=== PATIENT | male | born 1970 | race Caucasian/White ===

== ENCOUNTER 2017-09-17 17:18 | Emergency (ER) | payer MEDICAID ==
[~2017-09-17] VITALS: Ht 188 cm; Wt 87.4 kg
[~2017-09-17 17:18] MED LIST: IBUP-1984 PO; POLY17PO10 PO
[2017-09-17] MEDS ORDERED: LIDO700A32 TOP (19:17)
[2017-09-17 19:24] VITALS: BP 138/98
== END 2017-09-17 19:25 | disposition home or self-care (01) ==
LOC: ER 17:19
DX: R07.81 Pleurodynia (principal); W01.0XXA Fall on same level from slipping, tripping and stumbling without subsequent striking against object, initial encounter; Y93.89 Activity, other specified; Y92.89 Other specified places as the place of occurrence of the external cause; Y99.8 Other external cause status
CPT/HCPCS: 71046; 71100; 99284

== ENCOUNTER 2018-11-19 20:57 | Emergency (ER) | payer MEDICAID ==
[~2018-11-19] VITALS: Ht 188 cm; Wt 80.0 kg
[~2018-11-19 20:57] MED LIST changes: +LIDO700A32 TOP
[2018-11-19 21:12] VITALS: BP 109/69
== END 2018-11-20 00:13 | disposition left against medical advice (07) ==
LOC: ER 20:58
DX: M54.5 Low back pain (principal); R20.0 Anesthesia of skin; R20.2 Paresthesia of skin; Z53.21 Procedure and treatment not carried out due to patient leaving prior to being seen by health care provider

== ENCOUNTER 2019-03-04 13:14 | Emergency (ER) | payer MEDICAID ==
[~2019-03-04] VITALS: Ht 188 cm; Wt 79.0 kg
[2019-03-04 13:21] VITALS: BP 110/84
[2019-03-04] MEDS ORDERED: TRAM50TA2 PO (14:00)
== END 2019-03-04 14:30 | disposition home or self-care (01) ==
LOC: ER 13:14
DX: S86.812A Strain of other muscle(s) and tendon(s) at lower leg level, left leg, initial encounter (principal); M79.672 Pain in left foot; Z98.890 Other specified postprocedural states; Z79.899 Other long term (current) drug therapy; W01.190A Fall on same level from slipping, tripping and stumbling with subsequent striking against furniture, initial encounter; Y93.89 Activity, other specified; Y92.59 Other trade areas as the place of occurrence of the external cause; Y99.0 Civilian activity done for income or pay
CPT/HCPCS: 73590; 73610; 99283

== ENCOUNTER 2020-11-11 08:24 | Emergency (ER) | payer MEDICAID ==
[~2020-11-11] VITALS: Ht 188 cm; Wt 88.0 kg
[2020-11-11 08:39] VITALS: BP 123/85
== END 2020-11-11 11:35 | disposition home or self-care (01) ==
LOC: ER 08:25
DX: M25.511 Pain in right shoulder (principal); Z98.890 Other specified postprocedural states; Z79.899 Other long term (current) drug therapy
CPT/HCPCS: 73000; 99283

== ENCOUNTER 2022-11-19 08:27 | Emergency (ER) | payer MEDICAID ==
[~2022-11-19] VITALS: Ht 188 cm; Wt 90.0 kg
[2022-11-19] MEDS ORDERED: dexamethasone sod phosphate 10mg/ml inj IM STA (09:13)
[2022-11-19] MEDS ORDERED: LIDOcaine 5% patch TP STA (09:13)
[2022-11-19] MEDS ORDERED: DEXA6TAB PO (10:43)
[2022-11-19] MEDS ORDERED: CYCL-392 PO (10:43)
[2022-11-19 11:04] VITALS: BP 110/85
== END 2022-11-19 11:11 | disposition home or self-care (01) ==
LOC: ER 08:27
DX: M54.50 Low back pain, unspecified (principal); Z79.899 Other long term (current) drug therapy; Z98.890 Other specified postprocedural states
CPT/HCPCS: 96372; 99283; J1100

== ENCOUNTER 2024-11-28 15:01 | Emergency (ER) | payer BC, MEDICAID ==
[~2024-11-28] VITALS: Ht 188 cm; Wt 69.0 kg
[~2024-11-28 15:01] MED LIST changes: +CYCL-392 PO; +DEXA6TAB PO
--- NOTE | 2024-11-28 15:30 | ELECTROCARDIOGRAPH REPORT ---
[facility] Test Date: 2024-11-28 Test Time: 15:01:21 Pat Name: HARRIS ROMERO Department: EMERGENCY ROOM Room: Gender: M Advanced Practice Nurse: : 1970 Requested By: DEPARTMENT EMERGENCY Order Number: [id number] Reading MD: Dr. Lester Soto Measurements Intervals [place] Rate: 80 P: 60 ID: [id number] QRS: 73 QRSD: 86 T: 52 QT: 365 QTc: 421 Interpretive Statements Sinus rhythm Electronically Signed On 12-05-2024 21:44:[address] Lester Soto Please click the below link to view image of tracing.
[2024-11-28 19:27] LABS: BASOPHILS % (AUTO) 0.6 % (0-1); EOSINOPHILS # (AUTO) 0.1 X10'3 (0-0.9); EOSINOPHILS % (AUTO) 1.8 % (0-6); HEMATOCRIT 46.3 % (42.0-52.0); LYMPHOCYTES # (AUTO) 0.7 X10'3 (1.1-4.8); LYMPHOCYTES % (AUTO) 16.4 % (21-51); MEAN CORPUSCULAR HEMOGLOBIN 31.4 PG (27.0-31.0); MEAN CORPUSCULAR HGB CONC 34.5 g/dL (33.0-36.5); MEAN PLATELET VOLUME 7.2 FL (7.4-10.4); MONOCYTES # (AUTO) 0.4 X10'3 (0-0.9); MONOCYTES % (AUTO) 8.1 % (2-12); NEUTROPHILS # (AUTO) 3.3 X10'3 (1.8-7.7); NEUTROPHILS % (AUTO) 73.1 % (42-75); PLATELET COUNT 261 X10'3 (140-440); RED BLOOD COUNT 5.09 X10'6 (4.70-6.10); RED CELL DISTRIBUTION WIDTH 13.3 % (11.5-14.5); WHITE BLOOD COUNT 4.5 X10'3 (4.5-11.0)
--- NOTE | 2024-11-28 19:30 | Physician Documentation ---
History of Present Illness ~ Chief Complaint: Chest Pain Stated Complaint: CP Time Seen by MD: 18:52 OK to notify your PCP?: Yes Primary Medical Doctor: NANDO DONALD Source: patient, EMS notes reviewed Mode of Arrival: EMS Exam Limitations: no limitations HEART Score: 2 HPI Chief Complaint: Chest pressure Caveat: None Independent Historians: Paramedics History of Present Illness: Patient is a 54-year-old man brought in by paramedics from home for chest pain. Patient describes the pain as pressure. This lasted approximately 1 hour. Who was associated with nausea and shortness of Breath. Patient also felt fatigued. Diaphoresis. Chest pressure was nonradiating. Paramedics gave him 324 of aspirin and one sublingual nitro. This made him feel more fatigued. No abdominal pain. No vomiting or diarrhea. This occurred while at rest. There are no exacerbating factors. Patient states that he had a similar experience but was much worse seven years ago. He was admitted to the hospital and had a full and negative cardiac workup. Review of systems: All systems were reviewed and are negative except for what is indicated in the history of present illness. Past Medical History: HLD Past Surgical History: None Social History: No tobacco use, no alcohol use, no drug use Medications: Reviewed as documented Nursing Notes Allergies: Reviewed as documented in Nursing Notes Medication Reconciliation Allergies: Coded Allergies: No Known Allergies (Unverified , 11/28/24) Scheduled Dexamethasone (Dexamethasone), 1 TAB PO DAILY Lidocaine (Lidoderm), 1 PATCH TOP DAILY Polyethylene Glycol 3350* (Miralax*), 1 PKT PO DAILY, (Reported) Scheduled PRN Cyclobenzaprine HCl (Cyclobenzaprine HCl), 1-2 TAB PO qhs PRN for muscle spasms Ibuprofen* (Motrin*), 1.5 TAB PO Q6H PRN PRN for P, (Reported) Past Medical History Past Medical History: No Pertinent History Past Surgical History: abdominal surgery Alcohol Use: None Drug Use: none Lives with: Family Lives In: Home Occupation: employed Physical Exam Vital Signs: Temperature: 98.3, Source: Oral, Heart Rate: 54, Respiratory Rate: 16, BP: 126/94, Pulse Oximetry: 94, Weight: 69.000 Oxygen Flow Rate: 0 Progress Results/Orders Results/Orders Orders - KACY TAYLOR MD Electrocardiogram (11/28/24 19:07) Chest,Single View (11/28/24 19:07) Saline Lock (11/28/24 19:07) Monitor (11/28/24 19:07) Oxygen (11/28/24 19:07) Hs Troponin I W Calculations (11/28/24 21:07) Hs Troponin I W Calculations (11/28/24 22:07) Completed Orders - KACY TAYLOR MD Cbc/Diff (11/28/24 19:07) MG (11/28/24 19:07) PBNP (11/28/24 19:07) Chest,Single View (11/28/24 19:07) D-Dimer (11/28/24 19:07) Hs Troponin I W Calculations (11/28/24 19:07) CMP (11/28/24 19:07) Vital Signs 11/28/24 11/28/24 11/28/24 11/28/24 15:28 18:47 18:47 19:50 Temp 97.6 98.3 98.3 Pulse 89 54 75 Resp 15 16 16 15 B/P (MAP) 125/90 126/94 (105) 124/88 (100) Pulse Ox 97 94 97 O2 Flow Rate 0 0 Laboratory Tests Test 11/28/24 19:14 White Blood Count 4.5 Red Blood Count 5.09 Hemoglobin 16.0 Hematocrit 46.3 Mean Corpuscular Volume 91.0 Mean Corpuscular Hemoglobin 31.4 H Mean Corpuscular Hemoglobin Concent 34.5 Red Cell Distribution Width 13.3 Platelet Count 261 Mean Platelet Volume 7.2 L Neutrophils (%) (Auto) 73.1 Lymphocytes (%) (Auto) 16.4 L Monocytes (%) (Auto) 8.1 Eosinophils (%) (Auto) 1.8 Basophils (%) (Auto) 0.6 Neutrophils # (Auto) 3.3 Lymphocytes # (Auto) 0.7 L Monocytes # (Auto) 0.4 Eosinophils # (Auto) 0.1 Basophils # (Auto) 0.0 CBC Comment D-Dimer 0.23 D-Dimer Comment Sodium Level 141 Potassium Level 4.5 Chloride Level 107 Carbon Dioxide Level 29.7 Anion Gap 4 L Blood Urea Nitrogen 14 Creatinine 0.99 Estimated GFR/1.73 m2 79 BUN/Creatinine Ratio 14.1 Glucose Level 87 Calcium Level 8.7 Magnesium Level 2.3 Total Bilirubin 0.7 Aspartate Amino Transf (AST/SGOT) 21 Alanine Aminotransferase (ALT/SGPT) 32 Alkaline Phosphatase 68 Troponin I High Sensitivity 5 Pro-B-Type Natriuretic Peptide < 30 Total Protein 7.0 Albumin 3.8 Globulin 3.2 Albumin/Globulin Ratio 1.2 Chemistry Comments Medical Decision Making Findings Differential diagnosis includes but is not limited to: Acute coronary syndrome, pulmonary embolus, pneumothorax, cholelithiasis, GERD, esophageal spasm, pericarditis EKG independent interpretation: Performed at 7:16 p.m.. Sinus bradycardia, heart rate 58, normal axis, normal ST segments Chest x-ray, single view, indication: Chest pain Independent interpretation: Lungs are clear, normal mediastinum, normal cardiac silhouette. No acute cardiopulmonary process Laboratory data independent interpretation: CBC: Unremarkable CMP: Unremarkable 1st. Troponin: 5 2nd Troponin: D-Dimer: Emergency department course/medical decision-making: Patient presents with chest pain and associated symptoms. However the patient's EKGs normal and chest x-ray is normal. D-dimer is normal ruling out pulmonary embolus. Cause for his chest pain is unknown. With 2- troponins and a heart score of two the patient may be discharged to follow up for outpatient cardiac stress test. Patient will be referred to his primary care doctor and Cardiology. Consultation/communications: Heart Score: 2 Departure Disposition: HOME / SELF CARE / HOMELESS Impression: Primary Impression: Chest pain Qualified Codes: R07.9 - Chest pain, unspecified Condition: Improved Additional Instructions: RECOMMEND YOU FOLLOW UP WITH YOUR PRIMARY CARE DOCTOR FOR REFERRAL TO CARDIOLOGY FOR ANOTHER OUTPATIENT STRESS TEST. RETURN TO THE EMERGENCY DEPARTMENT IF YOU HAVE RECURRENT SYMPTOMS. CALL DR. BRASWELL'S OFFICE TOMORROW TO SCHEDULE AN OUTPATIENT STRESS TEST. Referrals: ALISE BRASWELL MD Education Educated: Patient Educated regarding: diagnosis, treatment Signature Scribe Signature: No scribe Attestation: No scribe KACY TAYLOR MD November 28, 2024 19:30
[2024-11-28 19:34] LABS: D-DIMER 0.23 MG/L FEU (0-0.50)
[2024-11-28 19:46] LABS: ALANINE AMINOTRANSFERASE 32 U/L (12-78); ALBUMIN 3.8 G/DL (3.4-5.0); ALBUMIN/GLOBULIN RATIO 1.2 (1.1-1.5); ALKALINE PHOSPHATASE 68 IU/L (46-116); ANION GAP 4 (8-16); ASPARTATE AMINO TRANSFERASE 21 U/L (10-37); BILIRUBIN,TOTAL 0.7 MG/DL (0.1-1.0); BLOOD UREA NITROGEN 14 MG/DL (7-18); BUN/CREATININE RATIO 14.1 (10.0-20.0); CALCIUM 8.7 MG/DL (8.5-10.1); CHLORIDE 107 MMOL/L (99-107); CREATININE 0.99 MG/DL (0.60-1.10); GLUCOSE 87 MG/DL (70-104); MAGNESIUM 2.3 MG/DL (1.5-2.4); POTASSIUM 4.5 MMOL/L (3.5-5.1); PRO BRAIN NATRIURETIC PEPTIDE < 30 PG/ML (0-125); SODIUM 141 MMOL/L (135-145); TOTAL CARBON DIOXIDE 29.7 MMOL/L (24-32); eCRCL 83 ML/MIN; eGFR 79 ML/MIN
[2024-11-28 19:50] VITALS: TEMP 98.3
[2024-11-28 21:35] VITALS: BP 124/88; PULSE 61; RESP 16; O2SAT 99
--- NOTE | 2024-11-28 22:44 | RADIOLOGY REPORT ---
Clinical History CP Comparison CXR on 10/04/2017, 3 images. Technique: One view Without Contrast HARRIS ROMERO, [id number] FINDINGS: The aorta is within normal limits. The heart size is within normal limits. Lungs are clear. No di screte osseous lesion is noted. IMPRESSION: No evidence of acute cardiopulmonary disease. This report was electronically signed by Telly Interiano MD on 11/28/2024 10:41:23 PM.
--- NOTE | 2024-11-29 06:48 | ELECTROCARDIOGRAPH REPORT ---
[facility] Test Date: 2024-11-28 Test Time: 19:16:37 Pat Name: HARRIS ROMERO Department: EMERGENCY ROOM [id number] Room: Gender: M Compliance Spec: : 1970 Requested By: KACY TAYLOR Order Number: [id number] Reading MD: Dr. Lester Soto Measurements Intervals [place] Rate: 58 P: 72 [place]: 137 QRS: 69 QRSD: 86 T: 61 QT: 399 QTc: 392 Interpretive Statements Sinus bradycardia Electronically Signed On 12-05-2024 21:45:[address] Lester Soto Please click the below link to view image of tracing.
== END 2024-11-28 21:36 | disposition home or self-care (01) ==
LOC: ER 15:01
DX: R07.9 Chest pain, unspecified (principal); R53.83 Other fatigue; E78.5 Hyperlipidemia, unspecified
CPT/HCPCS: 36415; 71045; 80053; 83735; 83880; 84484; 85025; 85379; 93005; 99285

== ENCOUNTER 2025-03-04 09:57 | Emergency (ER) | payer BC ==
[~2025-03-04] VITALS: Ht 177.8 cm; Wt 87.0 kg
[~2025-03-04 09:57] MED LIST changes: +LIDO-52 TOP; -LIDO700A32 TOP
[2025-03-04 09:58] VITALS: BP 118/85; PULSE 78; RESP 16; TEMP 96.8; O2SAT 100
[2025-03-04] MEDS ORDERED: GABA-535 PO (13:21)
[2025-03-04] MEDS ORDERED: METH-798 PO (13:21)
--- NOTE | 2025-03-04 13:21 | Physician Documentation ---
History of Present Illness ~ Chief Complaint: Back Pain Stated Complaint: BACK PAIN Time Seen by MD: 11:58 Primary Medical Doctor: NANDO COLÓN Patient complains of acute on chronic low back pain with right-sided sciatica. Patient denies any saddle anesthesia or changes in bowel or bladder habits. Patient denies any chest pain or shortness of breath or abdominal pain or nausea, vomiting, diarrhea. Patient has no other concern or complaint at this time. Patient denies any recent injury but states he may have tweaked his back a few days ago. Medication Reconciliation Allergies: Coded Allergies: No Known Allergies (Unverified , 11/28/24) Scheduled Dexamethasone (Dexamethasone), 1 TAB PO DAILY Gabapentin (Gabapentin), 1 CAP PO Q8H Lidocaine (Lidoderm), 1 PATCH TOP DAILY Methocarbamol (Methocarbamol), 1 TAB PO Q8H Polyethylene Glycol 3350* (Miralax*), 1 PKT PO DAILY, (Reported) Scheduled PRN Cyclobenzaprine HCl (Cyclobenzaprine HCl), 1-2 TAB PO qhs PRN for muscle spasms Ibuprofen* (Motrin*), 1.5 TAB PO Q6H PRN PRN for P, (Reported) Past Medical History Past Medical History: No Pertinent History Past Surgical History: abdominal surgery Alcohol Use: None Drug Use: none Lives with: Family Lives In: Home Occupation: employed Review of Systems Constitutional: Denies: chills, fever, weakness Eyes: Denies: pain, blurred vision ENT: Denies: ear pain, nose pain, throat pain, mouth pain Respiratory: Denies: cough, shortness of breath Cardiovascular: Denies: chest pain, palpitations Gastrointestinal: Denies: abdominal pain, nausea, vomiting Genitourinary: Denies: burning, dysuria Male Genitalia: Denies: penile discharge, testicular pain Neurological: Denies: headache, dizziness Musculoskeletal: Denies: pain, swelling Integumentary: Denies: rash, lesions Allergic/Immunologic: Denies: hives, itching Hematologic/Lymphatic: Denies: no symptoms reported Psychiatric: Denies: depression, anxiety Physical Exam Physical Exam Vital Signs: Temperature: 96.8, Source: Temporal, Heart Rate: 78, Respiratory R ate: 16, BP: 118/85, Pulse Oximetry: 100, Weight: 87.000 Oxygen Flow Rate: 0 Physical Exam General: Awake and Alert, no acute distress. HEENT: Conjunctiva pink, Sclera clear, Mucus Membranes moist. Neck: Supple without masses and tenderness. Resp: Unlabored. Lungs clear to auscultation bilaterally. Heart: Regular Rate and rhythm, normal S1 and S2 without murmur, rub or gallop. Musculoskeletal: Patient on exam has significant decreased range of motion of the lumbar spine in all planes of motion. Patient is neurovascularly intact distally. Motor function intact distally. Strength intact. Extremities: No cyanosis,clubbing or edema. Skin: Warm and Dry. Progress Results/Orders Results/Orders Vital Signs 03/04/25 09:58 Temp 96.8 Pulse 78 Resp 16 B/P (MAP) 118/85 Pulse Ox 100 O2 Flow Rate 0 Medical Decision Making Findings Patient complains of acute on chronic low back pain with right-sided sciatica. Patient denies any saddle anesthesia or changes in bowel or bladder habits. Patient denies any chest pain or shortness of breath or abdominal pain or nausea, vomiting, diarrhea. Patient has no other concern or complaint at this time. Patient denies any recent injury but states he may have tweaked his back a few days ago. Patient declined any narcotic pain medications or Toradol shot stating he just needs muscle relaxer some gabapentin possibly. Patient was given prescription for gabapentin in muscle relaxer methocarbamol sent to patient's pharmacy to be taken as directed. Patient will follow up with primary care in 2-5 days if no better as needed sooner. Return to ED with any worsening, concerning or changing symptoms. Departure Disposition: 01 HOME / SELF CARE / HOMELESS Impression: Primary Impression: Low back pain Qualified Codes: M54.41 - Lumbago with sciatica, right side Additional Impression: Sciatica Qualified Codes: M54.31 - Sciatica, right side Condition: Improved Discharge Instructions: Sciatica Additional Instructions: Patient declined any narcotic pain medications or Toradol shot stating he just needs muscle relaxer some gabapentin possibly. Patient was given prescription for gabapentin in muscle relaxer methocarbamol sent to patient's pharmacy to be taken as directed. Patient will follow up with primary care in 2-5 days if no better as needed sooner. Return to ED with any worsening, concerning or changing symptoms. Referrals: NO PRIMARY CARE PROVIDER (PCP) Prescriptions Gabapentin (Gabapentin) 400 Mg Capsule 1 CAP PO Q8H for 15 Days, #45 CAP 0 Refills Prov: DAYRON HARTMAN PAC 03/04/25 Methocarbamol (Methocarbamol) 750 Mg Tablet 1 TAB PO Q8H for 15 Days, #45 TAB 0 Refills Prov: DAYRON HARTMAN 03/04/25 Signature Scribe Signature: No scribe Attestation: no scribe DAYRON HARTMAN PAC Mar 04, 2025 13:21
== END 2025-03-04 13:39 | disposition home or self-care (01) ==
LOC: ER 09:57
DX: M54.41 Lumbago with sciatica, right side (principal); Z79.899 Other long term (current) drug therapy
CPT/HCPCS: 99284